=== PATIENT | male | born 1980 | race Two or more races ===

== ENCOUNTER → 2022-02-04 | Emergency (ER) | payer MEDICAID, OTHER ==
[~2022-02-04] VITALS: Ht 167.6 cm; Wt 81.6 kg
[~2022-02-04] MED LIST: MORPHINE SULFATE 4 MG/ML SYR/VIAL IV ONE; ONDANSETRON HCL 4 MG/2 ML VIAL IV ONE; TETANUS-DIPTH-ACEL PERTUSSIS 0.5ML SYR Tdap IM ONE; ceFAZolin 1GM/50ML 50 ML IV ONE; fentaNYL CITRATE 100 MCG/2 ML VL IV ONE; fentaNYL CITRATE 5 ML ONE
== END | disposition home or self-care (01) ==
LOC: ER 16:30
DX: S62.391A Other fracture of second metacarpal bone, left hand, initial encounter for closed fracture (principal); S62.393A Other fracture of third metacarpal bone, left hand, initial encounter for closed fracture; S62.395A Other fracture of fourth metacarpal bone, left hand, initial encounter for closed fracture; S62.397A Other fracture of fifth metacarpal bone, left hand, initial encounter for closed fracture; R51.9 Headache, unspecified; M54.2 Cervicalgia; V86.59XA Driver of other special all-terrain or other off-road motor vehicle injured in nontraffic accident, initial encounter; Y93.89 Activity, other specified; Y92.89 Other specified places as the place of occurrence of the external cause; Y99.8 Other external cause status
CPT/HCPCS: 70450; 71045; 72125; 73090; 73130; 90471; 90715; 96365; 96375; 99284; J0690; J2270; J2405; J3010